=== PATIENT | female | born 1985 | race Caucasian/White ===

== ENCOUNTER → 2019-01-24 | Outpatient (CLI) | payer OTHER ==
[2019-01-24 11:06] LABS: HEMOGLOBIN 14.4 g/dL (12.0-15.0); MEAN CELL HGB 29.9 pg (26-34); MEAN CELL HGB CONCENTRATION 35.4 g/dL (33-37); MEAN CORP VOLUME 84.4 fL (78-100); RED CELL DISTRIBUTION WIDTH 13.3 % (11.5-14.5); WHITE BLOOD CELL 8.1 10^3/uL (4.5-11.0)
--- NOTE | 2019-01-24 11:33 | DIREP ---
PROCEDURE:CHEST 2 VIEWS COMPARISON:None. INDICATIONS:COUGH, LEFT PLEURAL EFFUSION FINDINGS: LUNGS/PLEURA:No significant pulmonary parenchymal abnormalities. No effusions. VASCULATURE:Normal. Unremarkable pulmonary vasculature. CARDIAC:Normal. No cardiac silhouette abnormality or cardiomegaly. MEDIASTINUM:Normal. No visible mass or adenopathy. BONES:Normal. No fracture or visible bony lesion. OTHER:Negative. CONCLUSION:Negative exam. Specifically, no evidence of pleural effusion Dictated by: Celeste Burks M.D. on 01/24/2019 at 11:32 AM
[2019-01-24 11:56] LABS: CALCIUM 9.9 mg/dL (8.4-10.5); CARBON DIOXIDE 25.2 mmol/L (20.0-32)
== END | disposition home or self-care (01) ==
LOC: LAB 10:24
PROVIDERS: ATTEND Specialist
DX: J90 Pleural effusion, not elsewhere classified (principal); R05 Cough
CPT/HCPCS: 36415; 71046; 80053; 84443; 85027; 85651; 86140